=== PATIENT | male | born 1935 | race Caucasian/White ===

== ENCOUNTER → 2016-02-09 | Outpatient (CLI) | payer MEDICARE ==
[~2016-02-09] MED LIST: ALLOPURINOL300 MG PO; CARDIZEM CD240 MG PO; CARDIZEM60 MG PO; CIPRO500 MG PO; DIGOXIN0.25 MG PO; KEFLEX500 MG PO; LISINOPRIL5 MG PO; METFORMIN1000 MG PO; PERCOCET 325 MG1 TA2 PO; SIMVASTATIN10 MG PO; SIMVASTATIN20 MG PO; SIMVASTATIN40 MG PO; TRICOR145 MG PO; TRILIPIX45 M1 PO; VIBRA-TAB100 M1 PO; WARFARIN SOD5 MG PO; WARFARIN SODIUM4 MG PO
[2016-02-09 16:33] LABS: INTERNATIONAL NORM RATIO 1.1 (2.0-3.5); PROTHROMBIN TIME 11.9 SECONDS (9.0-12.4)
== END | disposition home or self-care (01) ==
LOC: LAB 15:06
PROVIDERS: Internal Medicine
DX: R79.1 Abnormal coagulation profile (principal)

== ENCOUNTER → 2016-07-19 | Outpatient (CLI) | payer MEDICARE ==
[2016-07-19 13:40] LABS: INTERNATIONAL NORM RATIO 3.5 (2.0-3.5); PROTHROMBIN TIME 39.9 SECONDS (9.0-12.4)
== END | disposition home or self-care (01) ==
LOC: LAB 12:46
PROVIDERS: Family Medicine
DX: I48.2 Chronic atrial fibrillation (principal)

== ENCOUNTER → 2016-08-13 | Outpatient (CLI) | payer MEDICARE ==
[2016-08-13 12:26] LABS: INTERNATIONAL NORM RATIO 1.9 (2.0-3.5); PROTHROMBIN TIME 21.4 SECONDS (9.0-12.4)
== END | disposition home or self-care (01) ==
LOC: LAB 11:41
PROVIDERS: Family Medicine
DX: I48.2 Chronic atrial fibrillation (principal)

== ENCOUNTER → 2016-12-10 | Outpatient (CLI) | payer MEDICARE ==
[2016-12-10 14:17] LABS: INTERNATIONAL NORM RATIO 2.2 (2.0-3.5)
== END | disposition home or self-care (01) ==
LOC: LAB 13:17
PROVIDERS: Family Medicine
DX: I48.2 Chronic atrial fibrillation (principal)

== ENCOUNTER → 2017-01-14 | Outpatient (CLI) | payer MEDICARE ==
[2017-01-14 13:48] LABS: INTERNATIONAL NORM RATIO 2.5 (2.0-3.5)
[2017-01-14 13:49] LABS: BUN 25 mg/dl (7-24); CHLORIDE 105 mmol/L (98-107); CHOLESTEROL 157 mg/dL (<200); CPK 49 U/L (39-308); HDL CHOLESTEROL 48 mg/dl (40-60); LDL CHOLESTEROL 81 mg/dL (9-159); SODIUM 142 mmol/L (136-145); TRIGLYCERIDES 142 mg/dl (<150); VLDL CHOLESTEROL 28 mg/dL (6-40)
[2017-01-14 14:00] LABS: DIGOXIN 1.54 ng/ml (0.8-2.0)
== END | disposition home or self-care (01) ==
LOC: LAB 12:59
PROVIDERS: Family Medicine
DX: I48.2 Chronic atrial fibrillation (principal); E11.9 Type 2 diabetes mellitus without complications; E78.00 Pure hypercholesterolemia, unspecified

== ENCOUNTER → 2017-04-14 | Outpatient (CLI) | payer MEDICARE ==
[2017-04-14 14:26] LABS: INTERNATIONAL NORM RATIO 3.1 (2.0-3.5)
== END | disposition home or self-care (01) ==
LOC: LAB 13:32
PROVIDERS: Family Medicine
DX: I48.2 Chronic atrial fibrillation (principal)

== ENCOUNTER → 2017-07-15 | Outpatient (CLI) | payer MEDICARE ==
[2017-07-15 14:04] LABS: INTERNATIONAL NORM RATIO 2.9 (2.0-3.5)
== END | disposition home or self-care (01) ==
LOC: LAB 12:36
PROVIDERS: Family Medicine
DX: I48.2 Chronic atrial fibrillation (principal)

== ENCOUNTER → 2018-01-12 | Outpatient (CLI) | payer MEDICARE ==
[2018-01-12 14:29] LABS: INTERNATIONAL NORM RATIO 3.4 (2.0-3.5)
== END | disposition home or self-care (01) ==
LOC: LAB 13:04
PROVIDERS: Family Medicine
DX: I48.2 Chronic atrial fibrillation (principal)

== ENCOUNTER → 2018-03-13 | Outpatient (CLI) | payer MEDICARE ==
[2018-03-13 14:26] LABS: INTERNATIONAL NORM RATIO 1.8 (2.0-3.5)
== END | disposition home or self-care (01) ==
LOC: LAB 13:22
PROVIDERS: Family Medicine
DX: I48.2 Chronic atrial fibrillation (principal)

== ENCOUNTER → 2018-04-13 | Outpatient (CLI) | payer MEDICARE ==
[2018-04-13 14:22] LABS: INTERNATIONAL NORM RATIO 3.4 (2.0-3.5)
== END | disposition home or self-care (01) ==
LOC: LAB 13:06
PROVIDERS: Family Medicine
DX: I48.2 Chronic atrial fibrillation (principal)

== ENCOUNTER → 2019-04-06 | Outpatient (CLI) | payer MEDICARE ==
[2019-04-06 13:36] LABS: BUN 22 mg/dl (7-24); CHLORIDE 108 mmol/L (98-107); CREATININE 1.32 mg/dL (0.70-1.30); POTASSIUM 4.2 mmol/L (3.5-5.1); SODIUM 142 mmol/L (136-145)
[2019-04-06 13:41] LABS: CHOLESTEROL 167 mg/dL (<200); HDL CHOLESTEROL 53 mg/dl (40-60); LDL CHOLESTEROL 87 mg/dL (9-159); TRIGLYCERIDES 135 mg/dl (<150); VLDL CHOLESTEROL 27 mg/dL (6-40)
[2019-04-06 13:54] LABS: DIGOXIN 0.78 ng/ml (0.8-2.0)
== END | disposition home or self-care (01) ==
LOC: LAB 12:36
PROVIDERS: Family Medicine
DX: E11.9 Type 2 diabetes mellitus without complications (principal); I48.91 Unspecified atrial fibrillation

== ENCOUNTER 2020-07-27 18:25 | Emergency (ER) | payer MEDICARE ==
[~2020-07-27] VITALS: Ht 182.8 cm; Wt 77.1 kg
[~2020-07-27 18:25] MED LIST changes: +LATANOPROST2.5 ML OU; +LOPRESSOR25 MG PO; +VITAMIN D350 MC2 PO; +ZOSYN 3.373.375 GM/1 IV
[2020-07-27 20:47] LABS: BILIRUBIN Negative (Negative); BLOOD 3+ (Negative); CLARITY Cloudy (Clear); COLOR Yellow (Yellow); GLUCOSE 1+ (Negative); KETONE Negative (Negative); LEUKO ESTERASE 3+ (Negative); NITRITE Negative (Negative); SPECIFIC GRAVITY 1.015 (1.001-1.030)
[2020-07-27 20:51] LABS: PH 8.5 (4.5-8.0)
[2020-07-27 20:54] LABS: BACTERIA 2+; EPITHELIAL CELLS 0-2; RBC TNTC rbc/hpf (0-2); WBC TNTC wbc/hpf (0-5)
[2020-07-27] MEDS ORDERED: CIPRO500 MG PO (21:13)
== END 2020-07-27 21:41 | disposition home or self-care (01) ==
LOC: ED 18:25
PROVIDERS: Internal Medicine
DX: N39.0 Urinary tract infection, site not specified (principal); R33.9 Retention of urine, unspecified; Z88.0 Allergy status to penicillin; Z79.899 Other long term (current) drug therapy; Z98.890 Other specified postprocedural states

== ENCOUNTER 2020-07-28 03:28 | Emergency (ER) | payer MEDICARE ==
[~2020-07-28] VITALS: Ht 182.8 cm; Wt 77.1 kg
== END 2020-07-28 05:58 | disposition home or self-care (01) ==
LOC: ED 03:28
DX: T85.9XXA Unspecified complication of internal prosthetic device, implant and graft, initial encounter (principal); N39.0 Urinary tract infection, site not specified; Z88.0 Allergy status to penicillin; Z79.899 Other long term (current) drug therapy; Z79.84 Long term (current) use of oral hypoglycemic drugs; Z79.01 Long term (current) use of anticoagulants; Z98.890 Other specified postprocedural states; Y92.89 Other specified places as the place of occurrence of the external cause

== ENCOUNTER 2020-08-30 22:05 | Emergency (ER) | payer MEDICARE ==
[~2020-08-30] VITALS: Ht 172.7 cm; Wt 69.9 kg
[~2020-08-30 22:05] MED LIST changes: +METFORMIN XR500 MG PO; -METFORMIN1000 MG PO
[2020-08-30 22:57] LABS: BILIRUBIN Negative (Negative); BLOOD 3+ (Negative); CLARITY Cloudy (Clear); COLOR Yellow (Yellow); GLUCOSE 2+ (Negative); KETONE Negative (Negative); LEUKO ESTERASE 2+ (Negative); NITRITE Negative (Negative); PH 5.5 (4.5-8.0); SPECIFIC GRAVITY 1.015 (1.001-1.030)
[2020-08-30 23:18] LABS: EPITHELIAL CELLS 0-2; RBC 31-40 rbc/hpf (0-2); WBC 41-50 wbc/hpf (0-5)
[2020-08-30 23:19] LABS: BACTERIA 1+
[2020-08-30] MEDS ORDERED: CIPRO500 MG PO ×2 (23:40)
== END 2020-08-30 23:55 | disposition home or self-care (01) ==
LOC: ED 22:05
PROVIDERS: Emergency Medicine
DX: R33.9 Retention of urine, unspecified (principal); N39.0 Urinary tract infection, site not specified; F17.210 Nicotine dependence, cigarettes, uncomplicated; Z88.0 Allergy status to penicillin; Z79.899 Other long term (current) drug therapy; Z79.2 Long term (current) use of antibiotics; Z79.01 Long term (current) use of anticoagulants; Z90.89 Acquired absence of other organs; Z98.890 Other specified postprocedural states

== ENCOUNTER 2020-08-31 16:43 | Emergency (ER) | payer MEDICARE | END 2020-08-31 17:47 | disposition home or self-care (01) | LOC: ED 16:43 | DX: T83.038A Leakage of other urinary catheter, initial encounter (principal); F17.210 Nicotine dependence, cigarettes, uncomplicated; Z88.0 Allergy status to penicillin; Z79.899 Other long term (current) drug therapy; Z79.01 Long term (current) use of anticoagulants; Z79.2 Long term (current) use of antibiotics; Z98.890 Other specified postprocedural states; Z90.49 Acquired absence of other specified parts of digestive tract; Y84.8 Other medical procedures as the cause of abnormal reaction of the patient, or of later complication, without mention of misadventure at the time of the procedure; Y92.89 Other specified places as the place of occurrence of the external cause ==

== ENCOUNTER 2020-09-09 11:15 | Inpatient (IN) | payer MEDICARE ==
[~2020-09-09] VITALS: Ht 180.3 cm; Wt 74.8 kg
[2020-09-09 11:21] VITALS: BP 143/61
[2020-09-09 12:29] LABS: BASO # 0.1 10*3/uL (0.0-0.1); BASO % 0.4 % (0.0-1.0); EOS % 0.2 % (1.0-4.0); HEMATOCRIT 50.1 % (42.0-52.0); LYMPH # 1.5 10*3/uL (1.3-4.4); MEAN CELL VOLUME 92.3 fl (80.0-94.0); MEAN CORPUSCULAR HGB 30.8 pg (27.0-31.0); MEAN CORPUSCULAR HGB CONC 33.3 g/dl (33.0-37.0); MEAN PLATELET VOLUME 10.2 fl (9.6-12.3); MONO # 1.2 10*3/uL (0.1-1.0); MONO % 7.8 % (3.0-9.0); NEUT # 12.4 10*3/uL (2.3-7.9); NEUT % 81.1 % (47.0-73.0); PLATELET COUNT AUTOMATED 335 10*3/uL (130-400); RED BLOOD COUNT 5.43 10*6/uL (4.50-5.90); RED CELL DISTRI WIDTH 14.1 % (0-14.5); WHITE BLOOD COUNT 15.3 10*3/uL (4.8-10.8)
[2020-09-09 12:36] LABS: INTERNATIONAL NORM RATIO 1.8 (2.0-3.5)
[2020-09-09 12:39] LABS: ALBUMIN 3.1 gm/dl (3.1-4.5); ALKALINE PHOSPHATASE 91 U/L (45-117); BUN 25 mg/dl (7-24); CHLORIDE 103 mmol/L (98-107); CREATININE 1.02 mg/dL (0.70-1.30); LIPASE 83 U/L (73-393); POTASSIUM 4.3 mmol/L (3.5-5.1); SGOT/AST 14 IU/L (3-35); SGPT/ALT 13 U/L (12-78); SODIUM 136 mmol/L (136-145); TOTAL PROTEIN 7.7 gm/dL (6.4-8.2)
[2020-09-09 12:52] LABS: TROPONIN I 0.058 ng/ml (<0.045)
[2020-09-09 13:00] VITALS: BP 140/76
[2020-09-09 13:15] LABS: DIGOXIN 0.75 ng/ml (0.8-2.0)
[2020-09-09 15:03] LABS: BILIRUBIN Negative (Negative); BLOOD 3+ (Negative); CLARITY Turbid (Clear); COLOR Dark Yellow (Yellow); GLUCOSE Negative (Negative); KETONE 1+ (Negative); LEUKO ESTERASE 2+ (Negative); NITRITE Negative (Negative)
[2020-09-09 15:28] LABS: RBC 41-50 rbc/hpf (0-2); WBC TNTC wbc/hpf (0-5)
[2020-09-09 15:29] LABS: BACTERIA 2+
[2020-09-09 16:30] VITALS: BP 138/82
[2020-09-09 19:07] VITALS: BP 148/81
[2020-09-09 23:05] VITALS: BP 147/84
[2020-09-10] VITALS (17 sets, daily range): BP systolic 84–155; BP diastolic 26–89
[2020-09-10] MEDS ORDERED: DOXYCYCLINE100 M3 PO (00:13)
[2020-09-10 06:48] LABS: ALBUMIN 3.2 gm/dl (3.1-4.5); ALKALINE PHOSPHATASE 88 U/L (45-117); BUN 30 mg/dl (7-24); CHLORIDE 105 mmol/L (98-107); CHOLESTEROL 127 mg/dL (<200); LDL CHOLESTEROL 56 mg/dL (9-159); SGOT/AST 14 IU/L (3-35); SGPT/ALT 12 U/L (12-78); SODIUM 141 mmol/L (136-145); TOTAL PROTEIN 8.2 gm/dL (6.4-8.2); TRIGLYCERIDES 135 mg/dl (<150)
[2020-09-10 06:53] LABS: THYROID STIM HORMONE (HS) 0.783 uIU/ml (0.358-4.75)
[2020-09-10 07:02] LABS: BASO # 0.1 10*3/uL (0.0-0.1); BASO % 0.4 % (0.0-1.0); EOS % 0.3 % (1.0-4.0); HEMATOCRIT 53.9 % (42.0-52.0); LYMPH # 1.3 10*3/uL (1.3-4.4); LYMPH % 8.9 % (27.0-41.0); MEAN CELL VOLUME 93.7 fl (80.0-94.0); MEAN CORPUSCULAR HGB 30.6 pg (27.0-31.0); MEAN CORPUSCULAR HGB CONC 32.7 g/dl (33.0-37.0); MEAN PLATELET VOLUME 10.5 fl (9.6-12.3); MONO # 1.3 10*3/uL (0.1-1.0); MONO % 8.8 % (3.0-9.0); NEUT # 11.6 10*3/uL (2.3-7.9); PLATELET COUNT AUTOMATED 317 10*3/uL (130-400); RED BLOOD COUNT 5.75 10*6/uL (4.50-5.90); RED CELL DISTRI WIDTH 14.3 % (0-14.5); WHITE BLOOD COUNT 14.3 10*3/uL (4.8-10.8)
[2020-09-10 07:28] LABS: VITAMIN D, 25-HYDROXY 61.3 ng/mL (30-100)
[2020-09-10 17:53] LABS: ABG BASE EXCESS -0.7 mmol/L (-2.0-2.0); ARTERIAL BLOOD GAS PH 7.357 (7.35-7.45); ARTERIAL BLOOD GAS PO2 159.3 (80-90)
[2020-09-11] VITALS (84 sets, daily range): BP systolic 81–151; BP diastolic 36–73
[2020-09-11 06:06] LABS: ALBUMIN 2.2 gm/dl (3.1-4.5); CREATININE 1.62 mg/dL (0.70-1.30); POTASSIUM 4.1 mmol/L (3.5-5.1); TOTAL PROTEIN 5.7 gm/dL (6.4-8.2)
[2020-09-11 06:31] LABS: BASO % 0.3 % (0.0-1.0); HEMATOCRIT 42.8 % (42.0-52.0); LYMPH % 8.8 % (27.0-41.0); MEAN CELL VOLUME 95.1 fl (80.0-94.0); MEAN CORPUSCULAR HGB 30.7 pg (27.0-31.0); MEAN CORPUSCULAR HGB CONC 32.2 g/dl (33.0-37.0); MEAN PLATELET VOLUME 10.6 fl (9.6-12.3); MONO # 1.2 10*3/uL (0.1-1.0); MONO % 10.6 % (3.0-9.0); NEUT # 9.1 10*3/uL (2.3-7.9); NEUT % 79.8 % (47.0-73.0); PLATELET COUNT AUTOMATED 280 10*3/uL (130-400); RED CELL DISTRI WIDTH 14.5 % (0-14.5); WHITE BLOOD COUNT 11.4 10*3/uL (4.8-10.8)
[2020-09-12] VITALS (29 sets, daily range): BP systolic 97–151; BP diastolic 49–80
[2020-09-12 05:40] LABS: ALBUMIN 2.4 gm/dl (3.1-4.5); ALKALINE PHOSPHATASE 56 U/L (45-117); BUN 33 mg/dl (7-24); CHLORIDE 117 mmol/L (98-107); CREATININE 1.11 mg/dL (0.70-1.30); POTASSIUM 3.8 mmol/L (3.5-5.1); SGOT/AST 16 IU/L (3-35); SGPT/ALT 7 U/L (12-78); SODIUM 146 mmol/L (136-145); TOTAL PROTEIN 6.2 gm/dL (6.4-8.2)
[2020-09-12 05:54] LABS: BASO % 0.4 % (0.0-1.0); EOS # 0.4 10*3/uL (0.0-0.4); EOS % 3.7 % (1.0-4.0); HEMATOCRIT 41.6 % (42.0-52.0); LYMPH # 1.1 10*3/uL (1.3-4.4); LYMPH % 10.4 % (27.0-41.0); MEAN CELL VOLUME 94.3 fl (80.0-94.0); MEAN CORPUSCULAR HGB 30.4 pg (27.0-31.0); MEAN CORPUSCULAR HGB CONC 32.2 g/dl (33.0-37.0); MEAN PLATELET VOLUME 10.5 fl (9.6-12.3); MONO % 9.4 % (3.0-9.0); NEUT # 7.7 10*3/uL (2.3-7.9); NEUT % 75.7 % (47.0-73.0); PLATELET COUNT AUTOMATED 266 10*3/uL (130-400); RED BLOOD COUNT 4.41 10*6/uL (4.50-5.90); RED CELL DISTRI WIDTH 14.5 % (0-14.5); WHITE BLOOD COUNT 10.1 10*3/uL (4.8-10.8)
[2020-09-12 08:28] LABS: ABG BASE EXCESS -0.5 mmol/L (-2.0-2.0); ARTERIAL BLOOD GAS PH 7.405 (7.35-7.45)
[2020-09-12 10:33] LABS: ABG BASE EXCESS -0.4 mmol/L (-2.0-2.0); ARTERIAL BLOOD GAS PH 7.397 (7.35-7.45); ARTERIAL BLOOD GAS PO2 101.6 (80-90)
[2020-09-12 18:34] LABS: INTERNATIONAL NORM RATIO 1.2 (2.0-3.5)
[2020-09-13] VITALS: BP 131/67
[2020-09-13 04:00] VITALS: BP 122/50
[2020-09-13 05:59] LABS: BASO # 0.1 10*3/uL (0.0-0.1); BASO % 0.5 % (0.0-1.0); EOS # 0.4 10*3/uL (0.0-0.4); EOS % 3.8 % (1.0-4.0); LYMPH # 1.3 10*3/uL (1.3-4.4); LYMPH % 11.3 % (27.0-41.0); MEAN CELL VOLUME 95.5 fl (80.0-94.0); MEAN CORPUSCULAR HGB 30.5 pg (27.0-31.0); MEAN PLATELET VOLUME 10.4 fl (9.6-12.3); MONO # 0.9 10*3/uL (0.1-1.0); MONO % 7.7 % (3.0-9.0); NEUT # 8.7 10*3/uL (2.3-7.9); NEUT % 76.2 % (47.0-73.0); PLATELET COUNT AUTOMATED 281 10*3/uL (130-400); RED BLOOD COUNT 4.19 10*6/uL (4.50-5.90); RED CELL DISTRI WIDTH 14.7 % (0-14.5); WHITE BLOOD COUNT 11.4 10*3/uL (4.8-10.8)
[2020-09-13 06:20] LABS: CHLORIDE 116 mmol/L (98-107); POTASSIUM 3.5 mmol/L (3.5-5.1); SODIUM 146 mmol/L (136-145)
[2020-09-13 06:26] LABS: ALBUMIN 2.3 gm/dl (3.1-4.5); ALKALINE PHOSPHATASE 59 U/L (45-117); BUN 29 mg/dl (7-24); CREATININE 1.03 mg/dL (0.70-1.30); SGOT/AST 17 IU/L (3-35); SGPT/ALT 8 U/L (12-78); TOTAL PROTEIN 6.2 gm/dL (6.4-8.2)
[2020-09-13 08:00] VITALS: BP 124/54; BP 137/53
[2020-09-13 12:00] VITALS: BP 136/60
[2020-09-13 16:00] VITALS: BP 134/60
[2020-09-13 20:00] VITALS: BP 124/61
[2020-09-14] VITALS: BP 137/67
[2020-09-14 04:00] VITALS: BP 166/77
[2020-09-14 05:49] LABS: ALBUMIN 2.4 gm/dl (3.1-4.5); ALKALINE PHOSPHATASE 101 U/L (45-117); BUN 26 mg/dl (7-24); CHLORIDE 117 mmol/L (98-107); POTASSIUM 3.4 mmol/L (3.5-5.1); SGOT/AST 33 IU/L (3-35); SGPT/ALT 11 U/L (12-78); SODIUM 149 mmol/L (136-145); TOTAL PROTEIN 6.5 gm/dL (6.4-8.2)
[2020-09-14 06:10] LABS: BASO % 0.4 % (0.0-1.0); EOS # 0.8 10*3/uL (0.0-0.4); EOS % 7.1 % (1.0-4.0); HEMATOCRIT 40.3 % (42.0-52.0); LYMPH # 1.4 10*3/uL (1.3-4.4); LYMPH % 12.5 % (27.0-41.0); MEAN CELL VOLUME 94.8 fl (80.0-94.0); MEAN CORPUSCULAR HGB 30.8 pg (27.0-31.0); MEAN CORPUSCULAR HGB CONC 32.5 g/dl (33.0-37.0); MEAN PLATELET VOLUME 10.5 fl (9.6-12.3); MONO # 0.7 10*3/uL (0.1-1.0); MONO % 6.5 % (3.0-9.0); NEUT % 73.1 % (47.0-73.0); PLATELET COUNT AUTOMATED 296 10*3/uL (130-400); RED BLOOD COUNT 4.25 10*6/uL (4.50-5.90); RED CELL DISTRI WIDTH 14.7 % (0-14.5)
[2020-09-14 06:15] LABS: INTERNATIONAL NORM RATIO 1.3 (2.0-3.5)
[2020-09-14 08:00] VITALS: BP 166/67
[2020-09-14 12:00] VITALS: BP 131/61
[2020-09-14 16:00] VITALS: BP 146/72
[2020-09-15] VITALS: BP 146/69
[2020-09-15 04:00] VITALS: BP 156/76
[2020-09-15 05:30] LABS: ALBUMIN 2.3 gm/dl (3.1-4.5); ALKALINE PHOSPHATASE 68 U/L (45-117); BUN 22 mg/dl (7-24); CHLORIDE 113 mmol/L (98-107); CREATININE 0.73 mg/dL (0.70-1.30); POTASSIUM 3.4 mmol/L (3.5-5.1); SGOT/AST 28 IU/L (3-35); SGPT/ALT 11 U/L (12-78); SODIUM 146 mmol/L (136-145); TOTAL PROTEIN 6.7 gm/dL (6.4-8.2)
[2020-09-15 07:25] VITALS: BP 165/84
[2020-09-15 12:00] VITALS: BP 155/86
[2020-09-15 16:00] VITALS: BP 126/71
[2020-09-15 20:00] VITALS: BP 148/87
[2020-09-16] VITALS: BP 152/83
[2020-09-16 04:00] VITALS: BP 132/81
[2020-09-16 04:59] LABS: ALBUMIN 2.2 gm/dl (3.1-4.5); ALKALINE PHOSPHATASE 80 U/L (45-117); BUN 27 mg/dl (7-24); CHLORIDE 110 mmol/L (98-107); CREATININE 0.76 mg/dL (0.70-1.30); POTASSIUM 3.9 mmol/L (3.5-5.1); SGOT/AST 35 IU/L (3-35); SGPT/ALT 17 U/L (12-78); SODIUM 142 mmol/L (136-145); TOTAL PROTEIN 6.7 gm/dL (6.4-8.2)
[2020-09-16 05:08] LABS: INTERNATIONAL NORM RATIO 1.1 (2.0-3.5)
[2020-09-16 07:29] LABS: BASO # 0.1 10*3/uL (0.0-0.1); BASO % 0.5 % (0.0-1.0); EOS # 0.6 10*3/uL (0.0-0.4); EOS % 4.2 % (1.0-4.0); HEMATOCRIT 44.3 % (42.0-52.0); LYMPH # 1.4 10*3/uL (1.3-4.4); LYMPH % 10.5 % (27.0-41.0); MEAN CELL VOLUME 93.5 fl (80.0-94.0); MEAN CORPUSCULAR HGB 30.6 pg (27.0-31.0); MEAN CORPUSCULAR HGB CONC 32.7 g/dl (33.0-37.0); MEAN PLATELET VOLUME 11.5 fl (9.6-12.3); MONO # 0.9 10*3/uL (0.1-1.0); MONO % 7.1 % (3.0-9.0); NEUT % 77.3 % (47.0-73.0); PLATELET COUNT AUTOMATED 320 10*3/uL (130-400); RED BLOOD COUNT 4.74 10*6/uL (4.50-5.90); RED CELL DISTRI WIDTH 14.3 % (0-14.5)
[2020-09-16 08:00] VITALS: BP 140/72
[2020-09-16 12:00] VITALS: BP 143/87
[2020-09-16] MEDS ORDERED: ENOXAPARIN100 MG/1 M SC (14:20)
[2020-09-16] MEDS ORDERED: DILTIAZEM HCL60 MG NG (14:20)
[2020-09-16] MEDS ORDERED: DIFLUCAN IV (14:30)
[2020-09-16 16:00] VITALS: BP 124/70
== END 2020-09-16 17:28 | disposition short-term general hospital (02) | DRG 335 ==
LOC: ED 11:15 → ICCU 15:39 → 4E 15:39 → EDHOLD 15:39 → 4E 22:08 → ICCU 09-10 15:43
PROVIDERS: Emergency Medicine; Family Medicine; Hospitalist; Internal Medicine; Internal Medicine Critical Care Medicine; Registered Nurse; Social Worker Clinical; ADMIT Internal Medicine; ATTEND Internal Medicine
PROC: 0YU60JZ Supplement Left Inguinal Region with Synthetic Substitute, Open Approach (ICD-10-PCS; principal; 2020-09-10)
PROC: 0BH17EZ Insertion of Endotracheal Airway into Trachea, Via Natural or Artificial Opening (ICD-10-PCS; 2020-09-10)
PROC: 5A1945Z Respiratory Ventilation, 24-96 Consecutive Hours (ICD-10-PCS; 2020-09-10)
PROC: 0DNW0ZZ Release Peritoneum, Open Approach (ICD-10-PCS; 2020-09-10)
PROC: 0WQF0ZZ Repair Abdominal Wall, Open Approach (ICD-10-PCS; 2020-09-10)
PROC: 0D9670Z Drainage of Stomach with Drainage Device, Via Natural or Artificial Opening (ICD-10-PCS; 2020-09-10)
DX: K56.699 Other intestinal obstruction unspecified as to partial versus complete obstruction (principal); N17.0 Acute kidney failure with tubular necrosis; E43 Unspecified severe protein-calorie malnutrition; J95.821 Acute postprocedural respiratory failure; K46.0 Unspecified abdominal hernia with obstruction, without gangrene; E87.2 Acidosis; E87.0 Hyperosmolality and hypernatremia; J98.11 Atelectasis; N39.0 Urinary tract infection, site not specified; K91.89 Other postprocedural complications and disorders of digestive system; R80.9 Proteinuria, unspecified; K40.90 Unilateral inguinal hernia, without obstruction or gangrene, not specified as recurrent; I48.0 Paroxysmal atrial fibrillation; Z20.822 Contact with and (suspected) exposure to COVID-19; N40.1 Benign prostatic hyperplasia with lower urinary tract symptoms; R33.8 Other retention of urine; M1A.10X0 Lead-induced chronic gout, unspecified site, without tophus (tophi); I10 Essential (primary) hypertension; E87.8 Other disorders of electrolyte and fluid balance, not elsewhere classified; R77.8 Other specified abnormalities of plasma proteins; E87.6 Hypokalemia; Z68.23 Body mass index [BMI] 23.0-23.9, adult; Z88.0 Allergy status to penicillin; Z82.49 Family history of ischemic heart disease and other diseases of the circulatory system; Z98.49 Cataract extraction status, unspecified eye; Z79.899 Other long term (current) drug therapy; Z79.01 Long term (current) use of anticoagulants; E11.65 Type 2 diabetes mellitus with hyperglycemia; I95.9 Hypotension, unspecified

== ENCOUNTER 2022-01-01 11:48 | Emergency (ER) | payer MEDICARE ==
[~2022-01-01] VITALS: Ht 182.8 cm; Wt 77.1 kg
[~2022-01-01 11:48] MED LIST changes: +DIFLUCAN IV; +DILTIAZEM HCL60 MG NG; +DOXYCYCLINE100 M3 PO; +ENOXAPARIN100 MG/1 M SC
== END 2022-01-01 13:29 | disposition home or self-care (01) ==
LOC: ED 11:48
DX: T83.098A Other mechanical complication of other urinary catheter, initial encounter (principal); F17.210 Nicotine dependence, cigarettes, uncomplicated; Z88.0 Allergy status to penicillin; Z79.899 Other long term (current) drug therapy; Z90.89 Acquired absence of other organs; Y92.89 Other specified places as the place of occurrence of the external cause

== ENCOUNTER 2022-01-12 04:57 | Emergency (ER) | payer MEDICARE ==
[~2022-01-12] VITALS: Wt 77.1 kg
[2022-01-12 06:31] LABS: BILIRUBIN Negative (Negative); BLOOD 2+ (Negative); CLARITY Turbid (Clear); COLOR Yellow (Yellow); GLUCOSE Negative (Negative); KETONE Negative (Negative); LEUKO ESTERASE 3+ (Negative); NITRITE Positive (Negative); UROBILINOGEN 0.2 E.U./dl (0.0-1.0)
[2022-01-12 06:32] LABS: PH 8.5 (4.5-8.0)
[2022-01-12] MEDS ORDERED: LEVOFLOXACIN750 M2 PO (06:40)
[2022-01-12 06:41] LABS: BACTERIA 4+; TRIP PHOS CRYSTALS 3+
== END 2022-01-12 07:37 | disposition home or self-care (01) ==
LOC: ED 04:57
PROVIDERS: Emergency Medicine
DX: T83.011A Breakdown (mechanical) of indwelling urethral catheter, initial encounter (principal); N39.0 Urinary tract infection, site not specified; Z88.0 Allergy status to penicillin; Z98.49 Cataract extraction status, unspecified eye; Z90.89 Acquired absence of other organs; Z98.890 Other specified postprocedural states; F17.210 Nicotine dependence, cigarettes, uncomplicated; Y84.8 Other medical procedures as the cause of abnormal reaction of the patient, or of later complication, without mention of misadventure at the time of the procedure; Y92.89 Other specified places as the place of occurrence of the external cause

== ENCOUNTER 2022-03-09 04:35 | Emergency (ER) | payer MEDICARE ==
[~2022-03-09] VITALS: Ht 182.8 cm; Wt 71.8 kg
[~2022-03-09 04:35] MED LIST changes: +LEVOFLOXACIN750 M2 PO
[2022-03-09 05:12] LABS: BILIRUBIN Negative (Negative); BLOOD 3+ (Negative); CLARITY Turbid (Clear); COLOR Yellow (Yellow); GLUCOSE Negative (Negative); KETONE Negative (Negative); LEUKO ESTERASE 3+ (Negative); NITRITE Positive (Negative)
[2022-03-09 05:16] LABS: PH 8.5 (4.5-8.0)
[2022-03-09 05:37] LABS: BACTERIA 4+; RBC 31-40 rbc/hpf (0-2); WBC 41-50 wbc/hpf (0-5)
[2022-03-09] MEDS ORDERED: LEVOFLOXACIN750 M2 PO (05:55)
== END 2022-03-09 05:59 | disposition home or self-care (01) ==
LOC: ED 04:35
PROVIDERS: Emergency Medicine
DX: R33.9 Retention of urine, unspecified (principal); N39.0 Urinary tract infection, site not specified; Z88.0 Allergy status to penicillin; Z98.49 Cataract extraction status, unspecified eye; Z90.89 Acquired absence of other organs; F17.200 Nicotine dependence, unspecified, uncomplicated

== ENCOUNTER → 2022-09-16 | Outpatient (CLI) | payer MEDICARE | END | disposition home or self-care (01) | LOC: CT 09-13 14:00 | PROVIDERS: ATTEND Urology | DX: K40.90 Unilateral inguinal hernia, without obstruction or gangrene, not specified as recurrent (principal); N40.0 Benign prostatic hyperplasia without lower urinary tract symptoms; K59.00 Constipation, unspecified; N30.90 Cystitis, unspecified without hematuria; N21.0 Calculus in bladder ==

== ENCOUNTER → 2022-12-22 | Outpatient (CLI) | payer MEDICARE | END | disposition home or self-care (01) | LOC: US 01:20 | PROVIDERS: ATTEND Urology | DX: N28.1 Cyst of kidney, acquired (principal); I10 Essential (primary) hypertension; I87.9 Disorder of vein, unspecified ==

== ENCOUNTER 2023-06-18 02:23 | Emergency (ER) | payer MEDICARE ==
[~2023-06-18] VITALS: Ht 182.8 cm; Wt 74.8 kg
== END 2023-06-18 03:48 | disposition home or self-care (01) ==
LOC: ED 02:23
DX: R33.9 Retention of urine, unspecified (principal); R10.30 Lower abdominal pain, unspecified; F17.210 Nicotine dependence, cigarettes, uncomplicated; Z88.0 Allergy status to penicillin; Z79.899 Other long term (current) drug therapy; Z79.2 Long term (current) use of antibiotics; Z90.89 Acquired absence of other organs; Z98.890 Other specified postprocedural states

== ENCOUNTER 2023-09-28 17:56 | Emergency (ER) | payer MEDICARE ==
[~2023-09-28] VITALS: Wt 72.6 kg
[2023-09-28 18:57] LABS: BILIRUBIN Negative (Negative); BLOOD 3+ (Negative); CLARITY Turbid (Clear); COLOR Yellow (Yellow); GLUCOSE Negative (Negative); KETONE Negative (Negative); LEUKO ESTERASE 3+ (Negative); NITRITE Positive (Negative); PH 6.5 (4.5-8.0); SPECIFIC GRAVITY <= 1.005 (1.001-1.030)
[2023-09-28 19:09] LABS: BACTERIA 2+; RBC 21-30 rbc/hpf (0-2); WBC TNTC wbc/hpf (0-5)
[2023-09-28] MEDS ORDERED: LEVOFLOXACIN 500 MG TAB PO ONE (19:30)
[2023-09-28] MEDS ORDERED: LEVOFLOXACIN750 M2 PO ×2 (19:32→19:38)
[2023-09-28] MEDS ORDERED: MYCOLOG OINTMEN15 GM T (21:44)
== END 2023-09-28 20:01 | disposition home or self-care (01) ==
LOC: ED 17:56
PROVIDERS: Nurse Practitioner Family
DX: T83.091A Other mechanical complication of indwelling urethral catheter, initial encounter (principal); N39.0 Urinary tract infection, site not specified; I10 Essential (primary) hypertension; E78.5 Hyperlipidemia, unspecified; E11.9 Type 2 diabetes mellitus without complications; I48.91 Unspecified atrial fibrillation; M10.9 Gout, unspecified; E78.00 Pure hypercholesterolemia, unspecified; F17.200 Nicotine dependence, unspecified, uncomplicated; Z88.0 Allergy status to penicillin; Z90.89 Acquired absence of other organs; Z98.890 Other specified postprocedural states; Y73.8 Miscellaneous gastroenterology and urology devices associated with adverse incidents, not elsewhere classified; Y92.009 Unspecified place in unspecified non-institutional (private) residence as the place of occurrence of the external cause

== ENCOUNTER 2024-01-23 18:03 | Emergency (ER) | payer OTHER, MEDICARE ==
[~2024-01-23 18:03] MED LIST changes: +MYCOLOG OINTMEN15 GM T
[2024-01-23 20:11] LABS: BASO # 0.1 10*3/uL (0.0-0.1); BASO % 0.8 % (0.0-1.0); EOS # 0.2 10*3/uL (0.0-0.4); EOS % 1.9 % (1.0-4.0); HEMATOCRIT 44.7 % (42.0-52.0); MEAN CELL VOLUME 92.2 fl (80.0-94.0); MEAN CORPUSCULAR HGB 30.9 pg (27.0-31.0); MEAN CORPUSCULAR HGB CONC 33.6 g/dl (33.0-37.0); MEAN PLATELET VOLUME 10.1 fl (9.6-12.3); MONO # 0.8 10*3/uL (0.1-1.0); MONO % 7.8 % (3.0-9.0); NEUT # 6.6 10*3/uL (2.3-7.9); NEUT % 64.7 % (47.0-73.0); PLATELET COUNT AUTOMATED 231 10*3/uL (130-400); RED BLOOD COUNT 4.85 10*6/uL (4.50-5.90); RED CELL DISTRI WIDTH 14.7 % (0-14.5); WHITE BLOOD COUNT 10.2 10*3/uL (4.8-10.8)
[2024-01-23 20:34] LABS: BUN 19 mg/dl (9-23); CHLORIDE 102 mmol/L (98-107); POTASSIUM 4.1 mmol/L (3.4-5.1)
[2024-01-23 20:38] LABS: BILIRUBIN Negative (Negative); BLOOD 2+ (Negative); CLARITY Cloudy (Clear); COLOR Yellow (Yellow); GLUCOSE 3+ (Negative); KETONE Negative (Negative); LEUKO ESTERASE 1+ (Negative); NITRITE Positive (Negative); SPECIFIC GRAVITY 1.025 (1.001-1.030)
[2024-01-23] MEDS ORDERED: METFORMIN HYDR500 MG PO (20:42)
[2024-01-23 20:49] LABS: BACTERIA 3+; RBC 21-30 rbc/hpf (0-2); WBC TNTC wbc/hpf (0-5)
[2024-01-23 20:50] LABS: YEAST 3+
== END 2024-01-23 21:34 | disposition home or self-care (01) ==
LOC: ED 18:03
PROVIDERS: Nurse Practitioner Family
DX: Z04.1 Encounter for examination and observation following transport accident (principal); I10 Essential (primary) hypertension; E78.5 Hyperlipidemia, unspecified; E11.9 Type 2 diabetes mellitus without complications; I48.91 Unspecified atrial fibrillation; M10.9 Gout, unspecified; R41.0 Disorientation, unspecified; E78.00 Pure hypercholesterolemia, unspecified; F17.200 Nicotine dependence, unspecified, uncomplicated; Z79.899 Other long term (current) drug therapy; Z88.0 Allergy status to penicillin; Z98.890 Other specified postprocedural states; Z90.89 Acquired absence of other organs; V43.52XA Car driver injured in collision with other type car in traffic accident, initial encounter; Y93.89 Activity, other specified; Y92.410 Unspecified street and highway as the place of occurrence of the external cause; Y99.8 Other external cause status

== ENCOUNTER → 2024-06-29 | Outpatient (CLI) | payer MEDICARE ==
[~2024-06-29] MED LIST changes: +METFORMIN HYDR500 MG PO
== END ==
LOC: WOUNDCARE 01:11
PROVIDERS: ATTEND Nurse Practitioner Family
DX: L89.623 Pressure ulcer of left heel, stage 3 (principal); R60.9 Edema, unspecified; L84 Corns and callosities; E11.51 Type 2 diabetes mellitus with diabetic peripheral angiopathy without gangrene; E11.42 Type 2 diabetes mellitus with diabetic polyneuropathy; I48.91 Unspecified atrial fibrillation; F17.210 Nicotine dependence, cigarettes, uncomplicated; Z79.84 Long term (current) use of oral hypoglycemic drugs; Z79.899 Other long term (current) drug therapy

== ENCOUNTER → 2024-07-06 | Outpatient (CLI) | payer MEDICARE | LOC: WOUNDCARE 00:53 | PROVIDERS: ATTEND Nurse Practitioner Family | DX: L89.623 Pressure ulcer of left heel, stage 3 (principal); E11.51 Type 2 diabetes mellitus with diabetic peripheral angiopathy without gangrene; E11.42 Type 2 diabetes mellitus with diabetic polyneuropathy; I48.91 Unspecified atrial fibrillation; F17.210 Nicotine dependence, cigarettes, uncomplicated; Z98.890 Other specified postprocedural states; Z79.84 Long term (current) use of oral hypoglycemic drugs; Z79.899 Other long term (current) drug therapy ==

== ENCOUNTER 2024-08-10 10:14 | Inpatient (IN) | payer MEDICARE ==
[~2024-08-10] VITALS: Ht 182.9 cm; Wt 68.6 kg
[2024-08-10 10:26] VITALS: BP 151/89
[2024-08-10 11:14] LABS: BILIRUBIN Negative (Negative); BLOOD 3+ (Negative); CLARITY Turbid (Clear); COLOR Red (Yellow); KETONE Negative (Negative); LEUKO ESTERASE 3+ (Negative); NITRITE Negative (Negative); PH 6.0 (4.5-8.0); SPECIFIC GRAVITY 1.010 (1.001-1.030); UROBILINOGEN 0.2 E.U./dl (0.0-1.0)
[2024-08-10 11:18] LABS: BASO # 0.1 10*3/uL (0.0-0.1); BASO % 0.5 % (0.0-1.0); EOS # 0.2 10*3/uL (0.0-0.4); EOS % 0.8 % (1.0-4.0); MEAN CELL VOLUME 94.2 fl (80.0-94.0); MEAN CORPUSCULAR HGB 30.5 pg (27.0-31.0); MEAN PLATELET VOLUME 10.1 fl (9.6-12.3); MONO # 1.0 10*3/uL (0.1-1.0); MONO % 5.1 % (3.0-9.0); NEUT # 16.6 10*3/uL (2.3-7.9); NEUT % 86.5 % (47.0-73.0); NUCLEATED RED BLOOD CELL 0.0 % (0.0-0.0); NUCLEATED RED BLOOD CELL 0.0 10*3/uL (0.0-0.0); PLATELET COUNT AUTOMATED 198 10*3/uL (130-400); RED CELL DISTRI WIDTH 15.7 % (0-14.5)
[2024-08-10 11:21] LABS: WBC TNTC wbc/hpf (0-5)
[2024-08-10 11:22] LABS: RBC TNTC rbc/hpf (0-2)
[2024-08-10 11:39] LABS: BUN 13 mg/dl (9-23); SGPT/ALT 8 U/L (5-49)
[2024-08-10] MEDS ORDERED: SODIUM CHLORIDE 0.9% 1,000 ML IV SCH (11:55)
[2024-08-10] MEDS ORDERED: DEXTROSE 50% 25 GM/50 ML VIAL IV PRN (13:55)
[2024-08-10] MEDS ORDERED: ACETAMINOPHEN 325 MG TAB PO PRN (13:55)
[2024-08-10] MEDS ORDERED: BISACODYL 5 MG TAB PO PRN (13:55)
[2024-08-10] MEDS ORDERED: Meropenem 500 MG IV SCH (14:05)
[2024-08-10] MEDS ORDERED: ELIQUIS5 M1 PO (16:01)
[2024-08-10] MEDS ORDERED: VIBRAMYCIN100 MG PO (16:01)
[2024-08-10] MEDS ORDERED: DILTIAZEM CD240 MG PO (16:03)
[2024-08-10] MEDS ORDERED: DIGOXIN125 MCG PO (16:03)
[2024-08-10] MEDS ORDERED: VITAMIN D350 MCG PO (16:05)
[2024-08-10 16:09] VITALS: BP 139/61
[2024-08-10] MEDS ORDERED: INSULIN LISPRO 1 UNIT/0.01 ML SQ SCH (16:30)
[2024-08-10] MEDS ORDERED: APIXABAN 5 MG TAB PO SCH (18:00)
[2024-08-10 20:00] VITALS: BP 131/57
[2024-08-10] MEDS ORDERED: LATANOPROST 0.005% 2.5 ML BOTTLE OPH SCH (22:00)
[2024-08-11] VITALS: BP 129/62
[2024-08-11 06:03] LABS: BASO # 0.1 10*3/uL (0.0-0.1); BASO % 0.6 % (0.0-1.0); EOS # 0.3 10*3/uL (0.0-0.4); EOS % 2.3 % (1.0-4.0); MEAN CELL VOLUME 95.1 fl (80.0-94.0); MEAN CORPUSCULAR HGB 30.7 pg (27.0-31.0); MEAN PLATELET VOLUME 10.8 fl (9.6-12.3); MONO # 0.9 10*3/uL (0.1-1.0); MONO % 6.5 % (3.0-9.0); NEUT # 10.8 10*3/uL (2.3-7.9); NEUT % 75.3 % (47.0-73.0); NUCLEATED RED BLOOD CELL 0.0 % (0.0-0.0); NUCLEATED RED BLOOD CELL 0.0 10*3/uL (0.0-0.0); PLATELET COUNT AUTOMATED 157 10*3/uL (130-400); RED CELL DISTRI WIDTH 15.9 % (0-14.5)
[2024-08-11 06:18] LABS: BUN 10 mg/dl (9-23)
[2024-08-11 06:19] LABS: SGPT/ALT < 7 U/L (5-49)
[2024-08-11 08:00] VITALS: BP 126/49
[2024-08-11] MEDS ORDERED: Cholecalciferol 2,000 UNIT TABLET (50 MCG) PO SCH (10:00)
[2024-08-11] MEDS ORDERED: ALLOPURINOL 300 MG TAB PO SCH (10:00)
[2024-08-11] MEDS ORDERED: LISINOPRIL 5 MG TAB PO SCH (10:00)
[2024-08-11] MEDS ORDERED: ATORVASTATIN CALCIUM 10 MG TAB PO SCH (10:00)
[2024-08-11 12:00] VITALS: BP 120/80
[2024-08-11] MEDS ORDERED: DIGOXIN 125 MCG TAB PO SCH (14:00)
[2024-08-11 20:00] VITALS: BP 120/62
[2024-08-11] MEDS ORDERED: LORazepam 1 MG TAB PO ONE (20:55)
[2024-08-12] VITALS: BP 118/72
[2024-08-12] MEDS ORDERED: diphenhydrAMINE hydrochloride 50 MG/ML VIAL IV PRN (01:10)
[2024-08-12 08:00] VITALS: BP 152/54
[2024-08-12 09:29] LABS: MEAN PLATELET VOLUME 10.1 fl (9.6-12.3); NUCLEATED RED BLOOD CELL 0.0 % (0.0-0.0); NUCLEATED RED BLOOD CELL 0.0 10*3/uL (0.0-0.0)
[2024-08-12 09:37] LABS: BASO # 0.1 10*3/uL (0.0-0.1); BASO % 0.8 % (0.0-1.0); EOS # 0.3 10*3/uL (0.0-0.4); EOS % 3.6 % (1.0-4.0); MEAN CELL VOLUME 93.7 fl (80.0-94.0); MEAN CORPUSCULAR HGB 31.3 pg (27.0-31.0); MONO # 0.8 10*3/uL (0.1-1.0); MONO % 8.5 % (3.0-9.0); NEUT # 6.2 10*3/uL (2.3-7.9); NEUT % 70.4 % (47.0-73.0); PLATELET COUNT AUTOMATED 197 10*3/uL (130-400); RED CELL DISTRI WIDTH 15.8 % (0-14.5)
[2024-08-12] MEDS ORDERED: DIGOXIN125 MCG PO (11:00)
[2024-08-12] MEDS ORDERED: OMNICEF300 MG PO (11:01)
[2024-08-12 12:00] VITALS: BP 139/60
== END 2024-08-12 15:35 | disposition home or self-care (01) | DRG 698 ==
LOC: ED 10:14 → 5E 12:28 → EDHOLD 12:28 → 5E 13:59
PROVIDERS: Internal Medicine; Registered Nurse; ADMIT Internal Medicine; ATTEND Internal Medicine
DX: T83.518A Infection and inflammatory reaction due to other urinary catheter, initial encounter (principal); A41.9 Sepsis, unspecified organism; E43 Unspecified severe protein-calorie malnutrition; N30.00 Acute cystitis without hematuria; I48.91 Unspecified atrial fibrillation; N40.0 Benign prostatic hyperplasia without lower urinary tract symptoms; I10 Essential (primary) hypertension; E11.9 Type 2 diabetes mellitus without complications; Y84.6 Urinary catheterization as the cause of abnormal reaction of the patient, or of later complication, without mention of misadventure at the time of the procedure; Z88.0 Allergy status to penicillin; Z79.899 Other long term (current) drug therapy; Z90.89 Acquired absence of other organs; Z98.41 Cataract extraction status, right eye; Z82.49 Family history of ischemic heart disease and other diseases of the circulatory system; Z81.1 Family history of alcohol abuse and dependence; Y92.89 Other specified places as the place of occurrence of the external cause

== ENCOUNTER 2024-10-02 16:34 | Emergency (ER) | payer MEDICARE ==
[~2024-10-02] VITALS: Ht 170.1 cm; Wt 68.0 kg
[~2024-10-02 16:34] MED LIST changes: +DIGOXIN125 MCG PO; +DILTIAZEM CD240 MG PO; +ELIQUIS5 M1 PO; +FLUCONAZOLE100 MG PO; +OMNICEF300 MG PO; +VIBRAMYCIN100 MG PO; +VITAMIN D350 MCG PO
[2024-10-02 17:44] LABS: BASO # 0.1 10*3/uL (0.0-0.1); BASO % 1.0 % (0.0-1.0); EOS # 0.2 10*3/uL (0.0-0.4); EOS % 1.6 % (1.0-4.0); MEAN CELL VOLUME 93.0 fl (80.0-94.0); MEAN CORPUSCULAR HGB 30.2 pg (27.0-31.0); MEAN PLATELET VOLUME 9.9 fl (9.6-12.3); MONO # 0.9 10*3/uL (0.1-1.0); MONO % 8.4 % (3.0-9.0); NEUT # 7.4 10*3/uL (2.3-7.9); NEUT % 72.5 % (47.0-73.0); NUCLEATED RED BLOOD CELL 0.0 % (0.0-0.0); NUCLEATED RED BLOOD CELL 0.0 10*3/uL (0.0-0.0); PLATELET COUNT AUTOMATED 297 10*3/uL (130-400); RED CELL DISTRI WIDTH 15.5 % (0-14.5)
[2024-10-02 18:03] LABS: BUN 19 mg/dl (9-23)
[2024-10-02] MEDS ORDERED: Sulfamethoxazole/Trimethopri 1 TAB TAB PO ONE (18:40)
[2024-10-02] MEDS ORDERED: SEPTDS PO (18:45)
[2024-10-02 18:57] LABS: BILIRUBIN Negative (Negative); BLOOD 2+ (Negative); CLARITY Turbid (Clear); COLOR Yellow (Yellow); KETONE Negative (Negative); LEUKO ESTERASE 3+ (Negative); NITRITE Negative (Negative); PH 5.5 (4.5-8.0); SPECIFIC GRAVITY 1.010 (1.001-1.030); UROBILINOGEN 0.2 E.U./dl (0.0-1.0)
[2024-10-02 19:19] LABS: BACTERIA 2+; RBC 16-20 rbc/hpf (0-2); WBC TNTC wbc/hpf (0-5); YEAST 1+
== END 2024-10-02 19:41 | disposition home or self-care (01) ==
LOC: ED 16:34
PROVIDERS: Emergency Medicine
DX: T83.098A Other mechanical complication of other urinary catheter, initial encounter (principal); N39.0 Urinary tract infection, site not specified; F17.210 Nicotine dependence, cigarettes, uncomplicated; I10 Essential (primary) hypertension; E11.9 Type 2 diabetes mellitus without complications; I48.91 Unspecified atrial fibrillation; M10.9 Gout, unspecified; E78.00 Pure hypercholesterolemia, unspecified; Z98.890 Other specified postprocedural states; Z90.89 Acquired absence of other organs; Z88.0 Allergy status to penicillin; Y92.89 Other specified places as the place of occurrence of the external cause

== ENCOUNTER 2024-10-05 08:14 | Inpatient (IN) | payer MEDICARE ==
[~2024-10-05] VITALS: Ht 180.3 cm; Wt 63.2 kg
[~2024-10-05 08:14] MED LIST changes: +SEPTDS PO
[2024-10-05 08:22] VITALS: BP 151/85
[2024-10-05] MEDS ORDERED: SODIUM CHLORIDE 0.9% 500 ML IV ONE (08:40)
[2024-10-05 09:01] LABS: BASO # 0.1 10*3/uL (0.0-0.1); BASO % 1.0 % (0.0-1.0); EOS # 0.7 10*3/uL (0.0-0.4); EOS % 6.4 % (1.0-4.0); MEAN CELL VOLUME 92.8 fl (80.0-94.0); MEAN CORPUSCULAR HGB 30.3 pg (27.0-31.0); MEAN PLATELET VOLUME 9.6 fl (9.6-12.3); MONO # 0.7 10*3/uL (0.1-1.0); MONO % 6.8 % (3.0-9.0); NEUT # 7.7 10*3/uL (2.3-7.9); NEUT % 73.4 % (47.0-73.0); NUCLEATED RED BLOOD CELL 0.0 % (0.0-0.0); NUCLEATED RED BLOOD CELL 0.0 10*3/uL (0.0-0.0); PLATELET COUNT AUTOMATED 296 10*3/uL (130-400); RED CELL DISTRI WIDTH 15.5 % (0-14.5)
[2024-10-05 09:20] LABS: BUN 17.0 mg/dl (9-23)
[2024-10-05 10:10] LABS: BILIRUBIN Negative (Negative); BLOOD 2+ (Negative); CLARITY Turbid (Clear); COLOR Yellow (Yellow); KETONE Negative (Negative); LEUKO ESTERASE 3+ (Negative); NITRITE Negative (Negative); PH 6.0 (4.5-8.0); SPECIFIC GRAVITY 1.010 (1.001-1.030); UROBILINOGEN 0.2 E.U./dl (0.0-1.0)
[2024-10-05 10:28] LABS: WBC TNTC wbc/hpf (0-5)
[2024-10-05 11:11] VITALS: BP 114/82
[2024-10-05] MEDS ORDERED: DOXYCYCLINE50 M2 PO (11:52)
[2024-10-05] MEDS ORDERED: B12-FOLIC ACID1 EACH PO (11:52)
[2024-10-05 14:50] VITALS: BP 127/87
[2024-10-05] MEDS ORDERED: DEXTROSE 50% 25 GM/50 ML VIAL IV PRN (14:50)
[2024-10-05] MEDS ORDERED: Acetaminophen/Hydrocodone 5 MG/325 MG TABLET PO PRN (14:50)
[2024-10-05] MEDS ORDERED: Ondansetron Hydrochloride 4 MG/2 ML VIAL IV PRN (14:50)
[2024-10-05] MEDS ORDERED: FLUCONAZOLE 100 MG TAB PO ONE (15:35)
[2024-10-05] MEDS ORDERED: INSULIN LISPRO 1 UNIT/0.01 ML SQ SCH (16:30)
[2024-10-05 20:26] VITALS: BP 153/77
[2024-10-05] MEDS ORDERED: APIXABAN 5 MG TAB PO SCH (22:00)
[2024-10-05] MEDS ORDERED: LATANOPROST 0.005% 2.5 ML BOTTLE OPH SCH (22:00)
[2024-10-06 05:10] LABS: ACT PARTIAL THROMBO TIME 27.0 SECONDS (20.0-32.1)
[2024-10-06 05:18] LABS: BUN 14 mg/dl (9-23); SGPT/ALT 8 U/L (5-49)
[2024-10-06 06:00] LABS: BASO # 0.1 10*3/uL (0.0-0.1); BASO % 1.0 % (0.0-1.0); EOS # 1.1 10*3/uL (0.0-0.4); EOS % 11.4 % (1.0-4.0); MEAN CELL VOLUME 91.8 fl (80.0-94.0); MEAN CORPUSCULAR HGB 30.6 pg (27.0-31.0); MEAN PLATELET VOLUME 9.9 fl (9.6-12.3); MONO # 0.9 10*3/uL (0.1-1.0); MONO % 9.2 % (3.0-9.0); NEUT # 6.1 10*3/uL (2.3-7.9); NEUT % 62.9 % (47.0-73.0); NUCLEATED RED BLOOD CELL 0.0 % (0.0-0.0); NUCLEATED RED BLOOD CELL 0.0 10*3/uL (0.0-0.0); PLATELET COUNT AUTOMATED 272 10*3/uL (130-400); RED CELL DISTRI WIDTH 15.6 % (0-14.5)
[2024-10-06 08:00] VITALS: BP 139/79
[2024-10-06] MEDS ORDERED: ALLOPURINOL 300 MG TAB PO SCH (10:00)
[2024-10-06] MEDS ORDERED: Cholecalciferol 2,000 UNIT TABLET (50 MCG) PO SCH (10:00)
[2024-10-06] MEDS ORDERED: SIMVASTATIN 20 MG TAB PO SCH (10:00)
[2024-10-06] MEDS ORDERED: FLUCONAZOLE 100 MG TAB PO SCH (10:00)
[2024-10-06 12:00] VITALS: BP 134/82
[2024-10-06 16:00] VITALS: BP 104/58
[2024-10-06 20:00] VITALS: BP 100/81
[2024-10-07] VITALS: BP 130/90
[2024-10-07 05:19] LABS: BUN 16 mg/dl (9-23)
[2024-10-07 06:18] LABS: BASO # 0.1 10*3/uL (0.0-0.1); BASO % 0.6 % (0.0-1.0); EOS # 0.7 10*3/uL (0.0-0.4); EOS % 7.6 % (1.0-4.0); MEAN CELL VOLUME 92.0 fl (80.0-94.0); MEAN CORPUSCULAR HGB 30.0 pg (27.0-31.0); MEAN PLATELET VOLUME 10.2 fl (9.6-12.3); MONO # 0.8 10*3/uL (0.1-1.0); MONO % 8.9 % (3.0-9.0); NEUT # 5.6 10*3/uL (2.3-7.9); NEUT % 58.7 % (47.0-73.0); NUCLEATED RED BLOOD CELL 0.0 % (0.0-0.0); NUCLEATED RED BLOOD CELL 0.0 10*3/uL (0.0-0.0); PLATELET COUNT AUTOMATED 270 10*3/uL (130-400); RED CELL DISTRI WIDTH 15.4 % (0-14.5)
[2024-10-07 08:00] VITALS: BP 112/64
[2024-10-07 12:00] VITALS: BP 139/84
[2024-10-07 16:00] VITALS: BP 101/42; BP 154/87
[2024-10-07 20:00] VITALS: BP 117/58
[2024-10-08] VITALS: BP 101/61
[2024-10-08 06:02] LABS: BUN 16 mg/dl (9-23)
[2024-10-08 06:21] LABS: BASO # 0.1 10*3/uL (0.0-0.1); BASO % 0.6 % (0.0-1.0); EOS # 0.2 10*3/uL (0.0-0.4); EOS % 2.4 % (1.0-4.0); MEAN CELL VOLUME 91.3 fl (80.0-94.0); MEAN CORPUSCULAR HGB 30.8 pg (27.0-31.0); MEAN PLATELET VOLUME 10.6 fl (9.6-12.3); MONO # 0.8 10*3/uL (0.1-1.0); MONO % 7.8 % (3.0-9.0); NEUT # 7.0 10*3/uL (2.3-7.9); NEUT % 69.7 % (47.0-73.0); NUCLEATED RED BLOOD CELL 0.0 % (0.0-0.0); NUCLEATED RED BLOOD CELL 0.0 10*3/uL (0.0-0.0); PLATELET COUNT AUTOMATED 269 10*3/uL (130-400); RED CELL DISTRI WIDTH 15.1 % (0-14.5)
[2024-10-08 08:00] VITALS: BP 110/64
[2024-10-08 12:00] VITALS: BP 125/68
[2024-10-08 16:00] VITALS: BP 97/47
[2024-10-08 20:00] VITALS: BP 132/62
[2024-10-09] VITALS: BP 177/86
[2024-10-09 06:26] LABS: MANUAL DIFF REFLEX YES; MEAN CELL VOLUME 91.1 fl (80.0-94.0); MEAN CORPUSCULAR HGB 30.6 pg (27.0-31.0); MEAN PLATELET VOLUME 9.8 fl (9.6-12.3); NUCLEATED RED BLOOD CELL 0.0 % (0.0-0.0); NUCLEATED RED BLOOD CELL 0.0 10*3/uL (0.0-0.0); PLATELET COUNT AUTOMATED 262 10*3/uL (130-400); RED CELL DISTRI WIDTH 15.1 % (0-14.5)
[2024-10-09 06:59] LABS: PLATELET SUFFICIENCY NORMAL (NORMAL)
[2024-10-09 07:11] LABS: BUN 15 mg/dl (9-23)
[2024-10-09 08:00] VITALS: BP 115/85
[2024-10-09 12:00] VITALS: BP 121/69
[2024-10-09] MEDS ORDERED: CEFTRIAXON2 GM/50 ML IV (12:21)
[2024-10-09 20:00] VITALS: BP 131/54
[2024-10-10 06:16] LABS: MEAN CELL VOLUME 92.0 fl (80.0-94.0); MEAN CORPUSCULAR HGB 30.3 pg (27.0-31.0); MEAN PLATELET VOLUME 10.2 fl (9.6-12.3); NUCLEATED RED BLOOD CELL 0.0 % (0.0-0.0); NUCLEATED RED BLOOD CELL 0.0 10*3/uL (0.0-0.0); PLATELET COUNT AUTOMATED 293 10*3/uL (130-400); RED CELL DISTRI WIDTH 15.4 % (0-14.5)
[2024-10-10 06:21] LABS: MANUAL DIFF REFLEX YES
[2024-10-10 06:40] LABS: BUN 17 mg/dl (9-23)
[2024-10-10 07:20] LABS: PLATELET SUFFICIENCY NORMAL (NORMAL)
[2024-10-10 08:00] VITALS: BP 148/68
[2024-10-10] MEDS ORDERED: FLUCONAZOLE100 MG PO (11:52)
[2024-10-10 12:00] VITALS: BP 114/54
== END 2024-10-10 13:30 | disposition home health service (06) | DRG 727 ==
LOC: ED 08:14 → 4E 12:46 → EDHOLD 12:46 → 4E 19:42
PROVIDERS: Emergency Medicine; Student in an Organized Health Care Education/Training Program; ADMIT Internal Medicine; ATTEND Internal Medicine
PROC: 05HA33Z Insertion of Infusion Device into Left Brachial Vein, Percutaneous Approach (ICD-10-PCS; principal; 2024-10-08)
PROC: B54NZZA Ultrasonography of Left Upper Extremity Veins, Guidance (ICD-10-PCS; 2024-10-08)
DX: B37.41 Candidal cystitis and urethritis (principal); G93.41 Metabolic encephalopathy; N17.9 Acute kidney failure, unspecified; N30.01 Acute cystitis with hematuria; I48.91 Unspecified atrial fibrillation; F03.90 Unspecified dementia, unspecified severity, without behavioral disturbance, psychotic disturbance, mood disturbance, and anxiety; Z66 Do not resuscitate; M10.9 Gout, unspecified; D64.9 Anemia, unspecified; E11.65 Type 2 diabetes mellitus with hyperglycemia; E11.49 Type 2 diabetes mellitus with other diabetic neurological complication; N40.1 Benign prostatic hyperplasia with lower urinary tract symptoms; R33.8 Other retention of urine; B96.20 Unspecified Escherichia coli [E. coli] as the cause of diseases classified elsewhere; N41.9 Inflammatory disease of prostate, unspecified; T83.011D Breakdown (mechanical) of indwelling urethral catheter, subsequent encounter; Z88.0 Allergy status to penicillin; Z82.49 Family history of ischemic heart disease and other diseases of the circulatory system; Z81.1 Family history of alcohol abuse and dependence

== ENCOUNTER 2024-10-16 11:26 | Emergency (ER) | payer MEDICARE ==
[~2024-10-16] VITALS: Ht 182.8 cm; Wt 72.6 kg
[~2024-10-16 11:26] MED LIST changes: +B12-FOLIC ACID1 EACH PO; +CEFTRIAXON2 GM/50 ML IV; +DOXYCYCLINE50 M2 PO
== END 2024-10-16 13:05 | disposition home or self-care (01) ==
LOC: ED 11:26
DX: T82.534A Leakage of infusion catheter, initial encounter (principal); I10 Essential (primary) hypertension; E11.9 Type 2 diabetes mellitus without complications; I48.91 Unspecified atrial fibrillation; Y84.8 Other medical procedures as the cause of abnormal reaction of the patient, or of later complication, without mention of misadventure at the time of the procedure; Y92.128 Other place in nursing home as the place of occurrence of the external cause